=== PATIENT | male | born 1960 | race Caucasian/White ===

== ENCOUNTER 2020-06-20 18:45 | Inpatient (IN) | payer OTHER, SELFPAY ==
[2020-06-20] VITALS (12 sets, daily range): BP systolic 140–182; BP diastolic 68–84; PULSE 54–70; RESP 16–17; TEMP 36.3–36.5; O2SAT 93–97; BMI 30.3
--- NOTE | 2020-06-20 19:00 | ED.GENADULT ---
HPI - General Adult General Chief complaint: GI Bleed Stated complaint: states hemmoroid, on warfarin, wont stop bleed Time Seen by Provider: 06/20/20 19:00 History of Present Illness HPI narrative: 59-year-old gentleman with aortic heart replacement currently on Coumadin with high blood pressure presents with rectal bleeding. He has had 8 years of presumed hemorrhoidal rectal bleeding. Because of his heart issues 3 open-heart surgeries with valve replacements and Coumadin his physicians have always suggested that the inconvenience of minor rectal bleeding was not enough to consider a hemorrhoidectomy. He states that he bleeds regularly however over the last 24 hours it is significantly worse not stopping and is more painful. Related Data Home Medications Medication Instructions Recorded Confirmed carvedilol [Coreg] 12.5 mg PO BID #0 07/25/11 06/20/20 spironolactone 25 mg PO QDAY #0 07/25/11 06/20/20 atorvastatin 40 mg PO QPM 06/20/20 06/20/20 furosemide 40 mg PO QAM 06/20/20 06/20/20 lisinopril 2.5 mg PO QPM 06/20/20 06/20/20 sertraline 100 mg PO QPM 06/20/20 06/20/20 warfarin [Coumadin] 10 mg PO DAILY 06/20/20 06/20/20 Allergies Allergy/AdvReac Type Severity Reaction Status Date / Time vancomycin [VANCOMYCIN] Allergy Unknown Verified 06/20/20 18:58 Influenza Virus Vaccines Allergy Verified 06/20/20 18:58 Review of Systems Review of Systems Narrative: Pertinent positive and negative findings as per HPI Remainder of review of systems is otherwise unremarkable for Constitutional: Fevers, chills, weakness ENT: No sore throat, neck pain, ear pain CV: Chest pain, palpitations, dyspnea on exertion Respiratory: Cough, wheeze, dyspnea GI: Nausea, vomiting, diarrhea, change in bowel habits, black or bloody stools : Dysuria, hematuria, flank pain MS: Muscle weakness, numbness, joint swelling or warmth Skin: Rashes, nonhealing lesions Patient History Medical History Chronic anticoagulation (Acute) High cholesterol (Acute) Hypertension (Acute) Myocardial infarct, old (Acute) Surgical History Mechanical heart valve present (Acute) Social History Smoking Status: Unknown if ever smoked Exam Narrative Exam Narrative: General: Healthy appearing, in no acute distress. Able to give a complete and coherent history. Well-nourished well-developed HEENT: Moist mucous membranes, normal sclera with reactive pupils, Respiratory: Lungs are clear to auscultation, no wheezing no rales no rhonchi. Full and symmetrical air movement Cardiac: Regular rate and rhythm no murmurs no bruits Abdomen: Soft nontender good bowel tones, no flank pain Skin: Warm and dry, no rashes Neurologic: Grossly neurologically intact with no obvious asymmetries or abnormalities Psych: Cooperative, appropriate insight and affect Rectal: 2 moderate size have thrombosed hemorrhoids each approximately 0.5 x 2.5 cm. In attempting actual rectal exam I am able to get my finger in at approximately 6:00 however from the 12 o'clock position there raw and irritated area that is not flexible, oozing blood and I am concerned that is actually a rectal cancer. And has a more fungating and macerated type surface than the hemorrhoids or internal mucosal surfaces. Initial Vital Signs Initial Vital Signs: Vital Signs Temperature 97.7 F 06/20/20 18:51 Pulse Rate 64 06/20/20 18:51 Respiratory Rate 16 06/20/20 18:51 Blood Pressure 182/83 H 06/20/20 18:51 Pulse Oximetry 97 06/20/20 18:51 Course Orders Ordered: ED Orders 06/20/20 19:15 Complete Blood Count AUTO DIFF Stat Comprehensive Metabolic Panel Stat Partial Thromboplastin Time Stat Prothrombin Time INR Stat Type and Screen Stat Discontinued Medications Tranexamic Acid (Cyklokapron) 1,000 mg MM NOW ONE Stop: 06/20/20 20:15 Last Admin: 06/20/20 21:40 Dose: 1,000 mg Documented by: YOLY Vital Signs Vital signs: Vital Signs - 8 hr 06/20/20 18:51 06/20/20 19:31 06/20/20 20:01 Temperature 97.7 F Pulse Rate 64 61 67 Respiratory Rate 16 Blood Pressure 182/83 H 155/68 H 181/84 H Pulse Oximetry 97 93 94 06/20/20 20:30 06/20/20 20:31 06/20/20 21:00 Temperature Pulse Rate 62 63 70 Respiratory Rate Blood Pressure 152/70 H 172/77 H Pulse Oximetry 96 95 96 Medical Decision Making Medical Records Medical records reviewed: Yes I reviewed the patient's medical records. Lab Data Lab results reviewed: Yes I reviewed the patient's lab results. Result diagrams: 06/20/20 19:15 06/20/20 19:15 Labs: Lab Results 06/20/20 06/20/20 06/20/20 Range/Units 19:15 19:15 19:15 WBC 6.2 (4.5-11.0) X10^3/uL RBC 5.00 (4.5-5.9) X10^6/uL Hgb 14.8 (13.5-17.5) g/dL Hct 42.7 (41-53) % MCV 85.5 (80-100) fL MCH 29.6 (26-34) PG MCHC 34.7 (30-36) % RDW 13.6 (11.6-14.8) % Plt Count 155 (150-400) X10^3/uL Neut % (Auto) 68.2 (50-75) % Lymph % (Auto) 23.7 L (25-40) % [place] % (Auto) 6.7 (3-14) % Eos % (Auto) 1.0 L (2-4) % Baso % (Auto) 0.4 (0-2) % Neut # (Auto) 4200 (9016-3974) /uL Lymph # (Auto) 1500 (0450-2241) /uL [place] # (Auto) 400 (0-900) /uL Eos # (Auto) 100 (0-450) /uL Baso # (Auto) 0 (0-100) /uL PT 26.3 H (10.1-12.7) SECONDS INR 2.3 H (0.9-1.3) APTT 29 (26.4-36.2) SECONDS Sodium 137 (137-145) mmol/L Potassium 4.3 (3.4-5.1) mmol/L Chloride 103 (98-107) mmol/L Carbon Dioxide 28 (22-32) mmol/L BUN 20 (9-20) mg/dL Creatinine 1.12 (0.66-1.25) mg/dL Estimated GFR > 60.0 (>60) mL/min BUN/Creatinine Ratio 17.9 (6-22) Glucose 111 H (80-110) mg/dL Calcium 10.1 (8.4-10.2) mg/dL Total Bilirubin 1.2 (0.2-1.3) mg/dL AST 43 (17-59) IU/L ALT 37 (<50) IU/L Alkaline Phosphatase 98 (38-126) U/L Total Protein 8.6 H (6.3-8.2) g/dL Albumin 5.2 H (3.5-5.0) g/dL Globulin 3.4 (1.7-4.1) g/dL Albumin/Globulin Ratio 1.5 (1.0-2.8) Blood Type Antibody Screen 06/20/20 Range/Units 19:15 WBC (4.5-11.0) X10^3/uL RBC (4.5-5.9) X10^6/uL Hgb (13.5-17.5) g/dL Hct (41-53) % MCV (80-100) fL MCH (26-34) PG MCHC (30-36) % RDW (11.6-14.8) % Plt Count (150-400) X10^3/uL Neut % (Auto) (50-75) % Lymph % (Auto) (25-40) % [place] % (Auto) (3-14) % Eos % (Auto) (2-4) % Baso % (Auto) (0-2) % Neut # (Auto) (7740-9645) /uL Lymph # (Auto) (8972-2917) /uL [place] # (Auto) (0-900) /uL Eos # (Auto) (0-450) /uL Baso # (Auto) (0-100) /uL PT (10.1-12.7) SECONDS INR (0.9-1.3) APTT (26.4-36.2) SECONDS Sodium (137-145) mmol/L Potassium (3.4-5.1) mmol/L Chloride (98-107) mmol/L Carbon Dioxide (22-32) mmol/L BUN (9-20) mg/dL Creatinine (0.66-1.25) mg/dL Estimated GFR (>60) mL/min BUN/Creatinine Ratio (6-22) Glucose (80-110) mg/dL Calcium (8.4-10.2) mg/dL Total Bilirubin (0.2-1.3) mg/dL AST (17-59) IU/L ALT (<50) IU/L Alkaline Phosphatase (38-126) U/L Total Protein (6.3-8.2) g/dL Albumin (3.5-5.0) g/dL Globulin (1.7-4.1) g/dL Albumin/Globulin Ratio (1.0-2.8) Blood Type O Negative Antibody Screen Negative MDM Narrative Medical decision making narrative: 59-year-old man with rectal bleeding concern for rectal cancer with obvious thrombosed hemorrhoids externally as well. Bleeding was controlled with Surgicel and ice. Of topical TIA x-ray on cotton balls just inside the orifice help control the oozing even more effectively. Discussion with Dr. Galeana. She said that she had time to see him in her clinic on and would happily consult if there is reason to stand hospital. As the bleeding is oozing and he is hemodynamically stable with the very reassuring hematocrit and INR therapeutic at 2.3 I believe home discharge is safe. Shared with him my concerns that this could be a cancer and even if it isn't the procedure is minor enough that 8 years of rectal bleeding is long enough to at least meet with a surgeon and consider surgical treatment. His primary care physician is with [facility], Dr. Garcia His oil well services dispatcher is [facility] and telling him. He states his last echocardiogram was a number of years ago. Dr. Galeana has call to review. Bleeding is definitely slowing but not stopped. Given his cardiac issues an anticoagulation issues he may be better served with an inpatient stay, medical management regarding anticoagulantion, record review and Anesthesiology consult in anticipation of surgical procedure needed. She will come in to examine the patient see if surgery is necessary sooner rather than later. After examination and discussion, surgeon and patient have decided on hospital admission. He will go to the medicine service for management of his anticoagulation as well as the valvular issues and anesthesia consultation. As his INR is 2.3 currently and goal is 1.5 her lower will opt to not give him his Coumadin tonight not treat him with vitamin K recheck tomorrow. May benefit more from FFP tomorrow morning if needed rather than vitamin K to prolong his window of getting back to a therapeutic level of anticoagulation post procedures. Plan is to do an exam under anesthesia tomorrow and probably inpatient colon prep with colonoscopy the following day given the severity of the rectal bleeding in the concern for rectal malignancy. Case was reviewed with hospital nurse practitioner Darrick, who will be the admitting provider eleonora. Discharge Plan Departure Patient Disposition: Admitted As Inpatient Clinical Impression: Lower gastrointestinal hemorrhage Referrals: Sascha Garcia MD [Primary Care Provider] -
[2020-06-20 19:23] LABS: Add Manual Diff / Slide Review NO; Basophils Absolute Auto 0 /uL (0-100); Basophils Percent Auto 0.4 % (0-2); Eosinophils Absolute Auto 100 /uL (0-450); Hematocrit 42.7 % (41-53); Hemoglobin 14.8 g/dL (13.5-17.5); Lymphocytes Absolute Auto 1500 /uL (1100-4500); Lymphocytes Percent Auto 23.7 % (25-40); Mean Corpuscular HGB Conc 34.7 % (30-36); Mean Corpuscular Hemoglobin 29.6 PG (26-34); Mean Corpuscular Volume 85.5 fL (80-100); Monocytes Absolute Auto 400 /uL (0-900); Monocytes Percent Auto 6.7 % (3-14); Neutrophils Absolute Auto 4200 /uL (1500-7000); Neutrophils Percent Auto 68.2 % (50-75); Platelet Count 155 X10^3/uL (150-400); Red Cell Distribution Width 13.6 % (11.6-14.8); White Blood Cell Count 6.2 X10^3/uL (4.5-11.0)
[2020-06-20 19:29] LABS: INR 2.3 (0.9-1.3); Prothrombin Time 26.3 SECONDS (10.1-12.7)
[2020-06-20 19:32] LABS: PTT Partial Thromboplastin Tim 29 SECONDS (26.4-36.2)
[2020-06-20 19:34] LABS: Alanine Aminotransferase 37 IU/L (<50); Albumin 5.2 g/dL (3.5-5.0); Albumin Globulin Ratio 1.5 (1.0-2.8); Alkaline Phosphatase 98 U/L (38-126); Aspartate Aminotransferase 43 IU/L (17-59); BUN Creatinine Ratio 17.9 (6-22); Bilirubin Total 1.2 mg/dL (0.2-1.3); Blood Urea Nitrogen 20 mg/dL (9-20); Calcium 10.1 mg/dL (8.4-10.2); Carbon Dioxide 28 mmol/L (22-32); Chloride 103 mmol/L (98-107); Estimated Glomerular Filt Rate > 60.0 mL/min (>60); Globulin 3.4 g/dL (1.7-4.1); Glucose 111 mg/dL (80-110); HEMOLYSIS < 15 (0-50); Potassium 4.3 mmol/L (3.4-5.1); Sodium 137 mmol/L (137-145); Total Protein 8.6 g/dL (6.3-8.2)
[2020-06-20] MEDS: TRANEXAMIC ACID 1,000 MG VIAL 1000 MG MM (21:40)
--- NOTE | 2020-06-20 21:43 | P.CONS_ITS ---
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 He has been on coumadin for the past 8 years due to the metal valve. He has had rectal bleeding ever since starting coumadin. He had never had a colonoscopy due to the complicated cardiac situation. He has intermittent rectal bleeding. Whenever he eats something he shouldn't and gets constipation he gets rectal bleeding. He often has signif icant swelling which he has now. He deferred dealing with his rectal bleeding because of the coumadin and cardiac history. He came into the ER tonight because of copious uncontrolled bleeding and uncontrolled pain. Dr. Neal in the ER has used surgicel, an ice pack, and transexcemic acid to try and stop his bleeding. His daughter is supposed to get proposed to by her boyfriend on Friday and the patient was planning to fly to [place] for that on Friday. ROS: Thirteen system review is otherwise negative other than as mentioned below and in HPI. Constitutional: Denies fevers, chills, weakness ENT: Denies sore throat, neck pain, ear pain CV: Denies chest pain, palpitations, dyspnea on exertion Respiratory: Denies cough, wheeze, dyspnea GI: Denies nausea, vomiting, diarrhea; reports change in bowel habits, black or bloody stools : Denies dysuria, hematuria, flank pain MS: Denies muscle weakness, numbness, joint swelling or warmth Skin: Denies rashes, nonhealing lesions PE: GENERAL: Well groomed and cooperative. Appears stated age. Answers questions promptly and appropriately. Vital signs noted. HENT: Normocephalic, atraumatic. Hearing intact. EYES: Conjunctiva pink, sclera white, no periorbital swelling. CARDIOVASCULAR: Regular rate. No pedal edema. RESPIRATORY: Non-tachypneic, breathing comfortably on room air. GASTROINTESTINAL: Abdomen soft and non-distended perianal: blood present, large external hemorrhoid swellings, tender to palpation GALLITO: massively swollen internal and external hemorrhoids, with internal hemorrhoid prolapse, with dark strangulated appearing prolapsed rectal mucosa GENITALURINARY: No flank tenderness. MUSCULOSKELETAL: Equal tone and mass bilaterally. SKIN: Warm, dry, soft, appropriate color for ethnicity. No other lesions, rashes, or wounds. NEURO: Alert and Oriented X 3. No gross sensory deficits, or cognitive issues. PSYCH: Appropriate affect and mood. Meds Home Medications and Allergies Home Medications Medication Instructions Recorded Confirmed Type carvedilol [Coreg] 12.5 mg PO BID #0 07/25/11 06/20/20 History spironolactone 25 mg PO QDAY #0 07/25/11 06/20/20 History atorvastatin 40 mg PO QPM 06/20/20 06/20/20 History furosemide 40 mg PO QAM 06/20/20 06/20/20 History lisinopril 2.5 mg PO QPM 06/20/20 06/20/20 History sertraline 100 mg PO QPM 06/20/20 06/20/20 History warfarin [Coumadin] 10 mg PO DAILY 06/20/20 06/20/20 History Allergies Allergy/AdvReac Type Severity Reaction Status Date / Time vancomycin [VANCOMYCIN] Allergy Unknown Verified 06/20/20 18:58 Influenza Virus Vaccines Allergy Verified 06/20/20 18:58 Exam Vital Signs (past 8 hours): - 06/20/20 18:51 06/20/20 19:31 06/20/20 20:01 Temperature 97.7 F Pulse Rate 64 61 67 Respiratory Rate 16 Blood Pressure 182/83 H 155/68 H 181/84 H Pulse Oximetry 97 93 94 06/20/20 20:30 06/20/20 20:31 06/20/20 21:00 Temperature Pulse Rate 62 63 70 Respiratory Rate Blood Pressure 152/70 H 172/77 H Pulse Oximetry 96 95 96 Oxygen Delivery Method Room Air Objective Labs Result Diagrams: 06/20/20 19:15 06/20/20 19:15 Labs: Laboratory Results - last 24 hr 06/20/20 06/20/20 06/20/20 19:15 19:15 19:15 WBC 6.2 RBC 5.00 Hgb 14.8 Hct 42.7 MCV 85.5 MCH 29.6 MCHC 34.7 RDW 13.6 Plt Count 155 Neut % (Auto) 68.2 Lymph % (Auto) 23.7 L [place] % (Auto) 6.7 Eos % (Auto) 1.0 L Baso % (Auto) 0.4 Neut # (Auto) 4200 Lymph # (Auto) 1500 [place] # (Auto) 400 Eos # (Auto) 100 Baso # (Auto) 0 PT 26.3 H INR 2.3 H APTT 29 Sodium 137 Potassium 4.3 Chloride 103 Carbon Dioxide 28 BUN 20 Creatinine 1.12 Estimated GFR > 60.0 BUN/Creatinine Ratio 17.9 Glucose 111 H Calcium 10.1 Total Bilirubin 1.2 AST 43 ALT 37 Alkaline Phosphatase 98 Total Protein 8.6 H Albumin 5.2 H Globulin 3.4 Albumin/Globulin Ratio 1.5 Blood Type Antibody Screen 06/20/20 19:15 WBC RBC Hgb Hct MCV MCH MCHC RDW Plt Count Neut % (Auto) Lymph % (Auto) [place] % (Auto) Eos % (Auto) Baso % (Auto) Neut # (Auto) Lymph # (Auto) [place] # (Auto) Eos # (Auto) Baso # (Auto) PT INR APTT Sodium Potassium Chloride Carbon Dioxide BUN Creatinine Estimated GFR BUN/Creatinine Ratio Glucose Calcium Total Bilirubin AST ALT Alkaline Phosphatase Total Protein Albumin Globulin Albumin/Globulin Ratio Blood Type O Negative Antibody Screen Negative Assessment & Plan Assessment and plan (1) Lower gastrointestinal hemorrhage: Status: Acute (2) Internal hemorrhoids with complication: Status: Acute (3) External hemorrhoids with complication: Status: Acute (4) Chronic constipation: Status: Acute (5) Anticoagulated on Coumadin: Status: Acute (6) S/P aortic valve replacement with metallic valve: Status: Acute Assessment & Plan narrative: This is a 59 yo man who has copious rectal bleeding and pain, on coumadin, with a complicated cardiac history. My concern is that he will continue to bleed without control, he may have an undiagnosed malignancy, and he has not been able to address this as an outpatient. I have recommended that he be admitted to the hospitalist, risk stratified for surgery, and have his anticoagulation reversed, with plans for anorectal exam under anesthesia tomorrow, and possible colonoscopy the following day. Plan: Admit to hospitalist, risk stratify for anorectal exam under anesthesia, hemorrhoidectomy, and possible colonoscopy procedure Please get primary care and executive chef notes for medical history and risk assessment Clear liquids until midnight NPO after midnight Hold anticoagulation Ice pack to rectum Preparation H external cream to anoderm and Preparation H suppositories Q 6 hours Recheck INR in AM, will consider FFP for procedure if INR is >2 Would avoid vitamin K as it will be tough to get his INR back up Will plan on Anorectal exam under anesthesia tomorrow, likely in the afternoon. Depending on the outcome, we may attempt bowel prep after the exam, and colonoscopy or Friday
[2020-06-20 22:45] LABS: COVID19 -Nasal RAPID Negative (Negative)
[2020-06-20] MEDS: carvediloL 12.5 MG TABLET PO (22:45)
[2020-06-20] MEDS: SERTRALINE 50 MG TABLET 100 MG PO (22:45)
[2020-06-20] MEDS: ATORVASTATIN 20 MG TABLET 40 MG PO (22:45)
[2020-06-20] MEDS: LACTATED RINGERS 1,000 ML 75 ML IV (22:46)
--- NOTE | 2020-06-20 22:54 | PC.ADMIT ---
[email or web address] Chaya Pierre Admission Note: The patient,Miky Segundo,59 y/o, was given written information regarding hospital policies, unit procedures and contact persons. Patient's smoking status: Unknown if ever smoked. Vital Signs - 8 hr 06/20/20 18:51 06/20/20 19:31 06/20/20 20:01 Temperature 97.7 F Pulse Rate 64 61 67 Respiratory Rate 16 Blood Pressure 182/83 H 155/68 H 181/84 H Pulse Oximetry 97 93 94 06/20/20 20:30 06/20/20 20:31 06/20/20 21:00 Temperature Pulse Rate 62 63 70 Respiratory Rate Blood Pressure 152/70 H 172/77 H Pulse Oximetry 96 95 96 06/20/20 21:30 06/20/20 21:31 06/20/20 21:38 Temperature Pulse Rate 56 L 57 L Respiratory Rate Blood Pressure 172/81 H Pulse Oximetry 95 93 94 06/20/20 22:01 06/20/20 22:45 Temperature Pulse Rate 54 L Respiratory Rate Blood Pressure 173/84 H 140/78 Pulse Oximetry Patient up from ED via stretcher. Patient was able to move self over to ac bed on own. Patient did have some bloody drainage on ED chucks pad. Patient denies any feelings of dizziness or feeling lightheaded. Patient A&O, calm and cooperative. Call light in reach. Patient aware of NPO status at midnight.
[2020-06-21] VITALS (23 sets, daily range): BP systolic 104–158; BP diastolic 58–80; PULSE 47–72; RESP 15–18; TEMP 36.1–37.5; O2SAT 93–99; BMI 28.6
--- NOTE | 2020-06-21 | PATH_ITS ---
[facility] Accession Number: [id number] . 01 Material submitted: . anus - ANAL BIOPSY . 01 Clinical history: . STATES HEMORRHOID, ON WARFARIN, WONT STOP BLEED . 02 Diagnosis: Anal, Biopsy: Ulcerated anorectal tissue with and prominent mucosal vessels, consistent with hemorrhoidal tissue. Negative for dysplasia and malignancy. MRV 06/23/2020 1337 Local . 02 Electronically signed: . Yuki Moy MD, Pathologist NPI- [id number] . 01 Gross description: . Received in formalin and labeled with anal biopsy, are two pieces of delgado soft tissue, possibly skin, measuring 0.6 x 0.4 x 0.3 to 0.6 x 0.5 x 0.2 cm. The first piece is inked, bisected, and entirely submitted in cassette A1. The second piece is inked, bisected, and entirely submitted in cassette A2. The tissue may further fragment during processing. ([id number]) /MRV 06/22/2020 0951 Local . 02 Pathologist provided ICD-10: K64.9 . 02 CPT . 300168 Performed at: 01 [facility] [address], [place], [place] [id number] MD Renan Yu MD Phone: [phone] Performed at: 02 [facility] [address] [place], [place] [id number] MD Yuki Moy MD Phone: [phone]
--- NOTE | 2020-06-21 00:22 | PM.HP.1 ---
History of Present Illness History of Present Illness Date Patient Seen: 06/20/20 Time Patient Seen: 23:00 Chief complaint: states hemmoroid, on warfarin, wont stop bleed Narrative: Miky Segundo is a pleasant 59-year-old male on warfarin anticoagulation for a mechanical valve presents with persistent hemorrhoidal bleeding that he attributes to his warfarin. The patient was evaluated in the ED by general surgery and they would like to admit the patient for further workup of the rectal bleeding as a believe he may have a rectal mass. They have requested admission so that the patient can undergo further exploration under general anesthesia tomorrow with a possible lower GI scope on or Friday of this week. The patient has a 10 year history of a repair of what was a bicuspid valve initially replaced with a porcine valve. He then underwent a dental procedure and developed an endocarditis that progressed to the point were he underwent 6 weeks of IV and intracardiac antibiotic therapy and at that time was placed on the heart transplant list at [facility] in [place]. The antibiotic therapy was successful and he underwent placement of a mechanical valve approximately 8 years ago and has been on warfarin anticoagulation since. He states that his INR does very quite a bit with his diet. He does have chronic constipation. He denies fevers sweats or chills though was quite diaphoretic while undergoing his workup in the ED, denies shortness of breath, chest pain, nausea vomiting, abdominal cramping, or diarrhea. Patient has a history of a 7 level cervical neck fusion and has chronic tingling of his right arm and 1st 3 fingers and thumb. In the emergency department he was evaluated by Dr. Galeana who would like the patient risk stratified and prepared for surgery in the morning. She recommended NPO after midnight and plans to take him in to the OR for rectal manipulation under general anesthesia sometime tomorrow afternoon. Patient's temperature was 97.4?, blood pressure 140/78, heart rate 54, respiratory rate of 17, oxygen saturation of 95% on room air, he weighs 98.5 kg and has a BMI of 30.3. WBC is 6.2, RBC 5.0, hemoglobin 14.8, hematocrit 42.7, platelet count 155, his INR is 2.3, sodium 137, potassium 4.3, chloride 103, CO2 28, creatinine 1.12, BUN 20, GFR greater than 60, glucose was 111, calcium 10.1, total bilirubin 1.2, liver enzymes are normal, COVID-19 negative. Patient History Medical History Chronic anticoagulation (Acute) High cholesterol (Acute) Hypertension (Acute) Myocardial infarct, old (Acute) Surgical History Mechanical heart valve present (Acute) Family & Social History Social History: household members significant other Prior Living Arrangements House Safety & Behavioral: Feels Safe in Current Yes Environment Been Physically Hurt or No Threatened By a Person Suicidal Ideation Description None Suicide Plan Description No Plan Tobacco & Substance use: Smoking Status Unknown if ever smoked alcohol intake former alcohol intake frequency holiday/special occasion Substance Use Type does not use Meds Home Medications and Allergies Home Medications Medication Instructions Recorded Confirmed Type carvedilol [Coreg] 12.5 mg PO BID #0 07/25/11 06/20/20 History spironolactone 25 mg PO QDAY #0 07/25/11 06/20/20 History atorvastatin 40 mg PO QPM 06/20/20 06/20/20 History furosemide 40 mg PO QAM 06/20/20 06/20/20 History lisinopril 2.5 mg PO QPM 06/20/20 06/20/20 History sertraline 100 mg PO QPM 06/20/20 06/20/20 History warfarin [Coumadin] 10 mg PO DAILY 06/20/20 06/20/20 History Allergies Allergy/AdvReac Type Severity Reaction Status Date / Time vancomycin [VANCOMYCIN] Allergy Unknown Verified 06/20/20 18:58 Influenza Virus Vaccines Allergy Verified 06/20/20 18:58 Review of Systems Review of Systems ROS: Yes All systems reviewed with the patient and are negative except as otherwise documented Exam Vital Signs (past 8 hours): - 06/20/20 18:51 06/20/20 19:31 06/20/20 20:01 Temperature 97.7 F Pulse Rate 64 61 67 Respiratory Rate 16 Blood Pressure 182/83 H 155/68 H 181/84 H Pulse Oximetry 97 93 94 06/20/20 20:30 06/20/20 20:31 06/20/20 21:00 Temperature Pulse Rate 62 63 70 Respiratory Rate Blood Pressure 152/70 H 172/77 H Pulse Oximetry 96 95 96 06/20/20 21:30 06/20/20 21:31 06/20/20 21:38 Temperature Pulse Rate 56 L 57 L Respiratory Rate Blood Pressure 172/81 H Pulse Oximetry 95 93 94 06/20/20 22:01 06/20/20 22:42 06/20/20 22:45 Temperature 97.4 F L Pulse Rate 54 L 54 L Respiratory Rate 17 Blood Pressure 173/84 H 140/78 140/78 Pulse Oximetry 95 Oxygen Delivery Method Room Air Narrative Exam Narrative: Gen: Alert, oriented, well-developed 73 y.o. male, appears comfortable HEENT: normocephalic, atraumatic, conjunctiva clear, sclera non-icteric, oral mucosa pink and moist Neck: supple, full ROM, no JVD, trachea is midline Resp: Lungs CTA, non-labored breathing CV: Slightly bradycardic, no murmur or rubs Abd: soft, non-tender, normoactive BTs Skin: no lesions or rashes, dry and intact Neuro: Alert and oriented X 4 w/no focal deficits. Speech clear and coherent. Extremities: moves all 4 extremities, is ambulatory, negative Enoc?s sign Psyche: normal mood and affect. Objective Labs Result Diagrams: 06/20/20 19:15 06/20/20 19:15 Labs: Laboratory Results - last 24 hr 06/20/20 06/20/20 06/20/20 19:15 19:15 19:15 WBC 6.2 RBC 5.00 Hgb 14.8 Hct 42.7 MCV 85.5 MCH 29.6 MCHC 34.7 RDW 13.6 Plt Count 155 Neut % (Auto) 68.2 Lymph % (Auto) 23.7 L [place] % (Auto) 6.7 Eos % (Auto) 1.0 L Baso % (Auto) 0.4 Neut # (Auto) 4200 Lymph # (Auto) 1500 [place] # (Auto) 400 Eos # (Auto) 100 Baso # (Auto) 0 PT 26.3 H INR 2.3 H APTT 29 Sodium 137 Potassium 4.3 Chloride 103 Carbon Dioxide 28 BUN 20 Creatinine 1.12 Estimated GFR > 60.0 BUN/Creatinine Ratio 17.9 Glucose 111 H Calcium 10.1 Total Bilirubin 1.2 AST 43 ALT 37 Alkaline Phosphatase 98 Total Protein 8.6 H Albumin 5.2 H Globulin 3.4 Albumin/Globulin Ratio 1.5 COVID-19 PCR Blood Type Antibody Screen 06/20/20 06/20/20 19:15 21:36 WBC RBC Hgb Hct MCV MCH MCHC RDW Plt Count Neut % (Auto) Lymph % (Auto) [place] % (Auto) Eos % (Auto) Baso % (Auto) Neut # (Auto) Lymph # (Auto) [place] # (Auto) Eos # (Auto) Baso # (Auto) PT INR APTT Sodium Potassium Chloride Carbon Dioxide BUN Creatinine Estimated GFR BUN/Creatinine Ratio Glucose Calcium Total Bilirubin AST ALT Alkaline Phosphatase Total Protein Albumin Globulin Albumin/Globulin Ratio COVID-19 PCR Negative Blood Type O Negative Antibody Screen Negative Assessment & Plan Assessment & Plan narrative: Miky Segundo will be admitted as an inpatient for further evaluation of severe rectal bleeding associated with hemorrhoids and a possible rectal mass. Rectal bleeding, acute, present on admission -patient will be NPO after midnight -Dr. Galeana general surgery consulting -warfarin will be held with a goal INR of 1.5 -if INR isn't low enough consider FFP Mechanical valve, chronic -Continue diuretics of furosemide 40 mg p.o. and spirolactone 25 mg p.o. in the morning -patient's INR today was 2.3 Essential hypertension, chronic and controlled -Continue home dose of carvedilol 12.5 mg p.o. b.i.d. -Continue home dose of lisinopril 12.5 mg p.o. in the evening Hyperlipidemia, chronic -continue home dose of atorvastatin 40 mg p.o. in the evening COVID-19 COVID-19 status: Negative Result date/Date tested (Pos, Neg/Pending): 06/20/20 Scores CHADS-VASc Congestive heart failure: yes Hypertension: yes Age 75 years or older: no Diabetes mellitus: no Stroke, TIA, or TE: no Vascular disease: yes Age 65 to 74 years: yes Sex category (female): Male CHADS-VASc Score: 4 Quality VTE Deep Vein Thrombosis/Pulmonary Embolism Present on Admission: No
[2020-06-21 05:22] LABS: Add Manual Diff / Slide Review NO; Basophils Absolute Auto 0 /uL (0-100); Basophils Percent Auto 0.4 % (0-2); Eosinophils Absolute Auto 100 /uL (0-450); Eosinophils Percent Auto 1.8 % (2-4); Hematocrit 38.5 % (41-53); Hemoglobin 13.2 g/dL (13.5-17.5); Lymphocytes Absolute Auto 1400 /uL (1100-4500); Lymphocytes Percent Auto 33.9 % (25-40); Mean Corpuscular HGB Conc 34.1 % (30-36); Mean Corpuscular Hemoglobin 29.5 PG (26-34); Mean Corpuscular Volume 86.4 fL (80-100); Monocytes Absolute Auto 400 /uL (0-900); Monocytes Percent Auto 9.3 % (3-14); Neutrophils Absolute Auto 2200 /uL (1500-7000); Neutrophils Percent Auto 54.6 % (50-75); Platelet Count 106 X10^3/uL (150-400); Red Blood Cell Count 4.46 X10^6/uL (4.5-5.9); Red Cell Distribution Width 13.5 % (11.6-14.8); White Blood Cell Count 4.1 X10^3/uL (4.5-11.0)
[2020-06-21 05:30] LABS: INR 2.3 (0.9-1.3); Prothrombin Time 26.5 SECONDS (10.1-12.7)
[2020-06-21 05:42] LABS: Alanine Aminotransferase 36 IU/L (<50); Albumin 4.4 g/dL (3.5-5.0); Albumin Globulin Ratio 1.5 (1.0-2.8); Alkaline Phosphatase 74 U/L (38-126); Aspartate Aminotransferase 42 IU/L (17-59); BUN Creatinine Ratio 14.2 (6-22); Bilirubin Total 1.1 mg/dL (0.2-1.3); Blood Urea Nitrogen 17 mg/dL (9-20); Calcium 9.2 mg/dL (8.4-10.2); Carbon Dioxide 30 mmol/L (22-32); Chloride 102 mmol/L (98-107); Estimated Glomerular Filt Rate > 60.0 mL/min (>60); Globulin 2.9 g/dL (1.7-4.1); Glucose 108 mg/dL (80-110); HEMOLYSIS < 15 (0-50); Magnesium 2.1 mg/dL (1.6-2.3); Potassium 3.8 mmol/L (3.4-5.1); Sodium 136 mmol/L (137-145); Total Protein 7.3 g/dL (6.3-8.2)
[2020-06-21] MEDS: SPIRONOLACTONE 25 MG TABLET PO (07:57)
[2020-06-21] MEDS: FUROSEMIDE 40 MG TABLET PO (07:58)
[2020-06-21] MEDS: carvediloL 12.5 MG TABLET PO ×2 (07:58→20:39)
[2020-06-21] MEDS: HYDROCORTISONE 25 MG SUPP PR (08:18)
[2020-06-21] MEDS: PHENYLEPH/MINERAL OIL/PETROLAT 57 GM OINT 1 APPLIC PR ×2 (08:18→20:40)
--- NOTE | 2020-06-21 09:52 | PC.NURSE ---
Nursing FFP started @ 947.
--- NOTE | 2020-06-21 10:23 | PC.NURSE ---
Dr. Berkowitz in this am to do rounds. She wanted us to put a rectal suppository in his rectum if possible, area swollen with protruding hemorrhoids that are red and purple in color. He is also having some bleeding with bright red blood. He did have a small bowel movement with bright red blood in stool. This RN was unable to suppository up patients rectum and could not find his opening. Prep H cream applied to bottom and he has an ice pack placed to his bottom. His first unit of FFP infusing and he will have one more unit to be hung, So that his INR will come down from 2.3. Patient will be going down for his anal exam around 1200 and his is in the room now. He is napping. Voiding per urinal.
[2020-06-21] MEDS: LORazepam 2 MG/ML INJ 0.5 MG IV (11:05)
--- NOTE | 2020-06-21 12:14 | CM.DANOTE ---
DCP Assessment: EMR reviewed: Patient is 59 yr old male who was admitted for Rectal bleeding an possible rectal mass. Patients PCP is Dr Garcia. CM/Rn met with patient and patients at the bedside. Patient was feeling anxious and started crying during visit. Patient asked CM/RN if he had cancer. CM/RN stated that his Dx is unknown at this point and that is why Dr. Berkowitz will be doing an anal exam and possibly a colonoscopy depending on findings during anal exam. Patient stated he is very worried and started crying again. Cm/RN let patients nurse know about patients anxiety and she will contact provider to see if patient can have something for anxiety prior to his procedure. Patient is Independent at baseline with all ADLs and driving. I: [employer] and select Plan: D/C home with family when medically stable. No identified D/C planning needs at this time. Diana Bourgeois RN Discharge Planning/Care Management CM Discharge Assessment Start: 06/21/20 12:13 Freq: Status: Active Protocol: Document 06/21/20 12:13 HS (Rec: 06/21/20 12:14 [id number]) Discharge Planning Assessment Assigned Bonding Agent Diana Bourgeois RN DPOA/Assigned Designee Name Nelsy Cee () Contact Information [phone] Advance Directives? No History Provided By Patient,Significant Other, Medical Record Has Patient been admitted in last 30 No days? Prior Living Arrangements House Household Members significant other Type of transporation used prior to Drives own vehicle admit Independent with ADL's Yes Is patient alert and oriented? Yes Caregiver for Another No Discharge Plan Home Referrals Initiated None needed Whiteboard Updated in Patient Room with Yes name and ext. # of Bonding Agent Review Status In Process Next Review Type Continued Stay Review
--- NOTE | 2020-06-21 13:00 | SUR.HOLD ---
1257 Dr. Berkowitz informed of INR 1.7 post transfusion
[2020-06-21] MEDS: LACTATED RINGERS 1,000 ML 42 ML IV (13:02)
--- NOTE | 2020-06-21 13:06 | PM.PREOP ---
Pre-operative Note COVID-19 COVID-19 status: Negative Result date/Date tested (Pos, Neg/Pending): 06/20/20 Interval Note History & Physical reviewed/Exam performed by Physician: Yes Changes to H&P: Yes H&P completed within 30 days and has changed as indicated here:: INR now 1.7 after FFP
[2020-06-21] MEDS: PIPERACILLIN-TAZO 3.375 GM/50 ML FROZ.PIGGY IV ×2 (14:00→20:39)
--- NOTE | 2020-06-21 14:18 | SUR.OPER ---
Prone on padded OR bed, head in foam head support, gel chest rolls, gel pad under knees, pillow under lower legs, toes free of pressure, arms secured on padded arm boards at <90 degrees abduction. Safety belt at thigh.
[2020-06-21] MEDS: BUPIVACAINE 0.25% W/ EPI 30 ML VIAL INJ (14:23)
[2020-06-21] MEDS: BUPIVACAINE LIPOSOME 266 MG/20 ML VIAL INJ (14:23)
--- NOTE | 2020-06-21 14:28 | SUR.OPER ---
5 hemorrhoid bads placed
[2020-06-21] MEDS: DIBUCAINE 1% OINT 28 GM 1 APPLIC TOP (14:31)
--- NOTE | 2020-06-21 14:45 | PC.NURSE ---
second unit of FFP infused at 1200 before going down for his procedure. Tolerated both units well.
--- NOTE | 2020-06-21 14:46 | PM.OP.1 ---
Operative Date/Time/Diagnoses Date of procedure: 06/21/20 Time of procedure: 14:47 Pre-op diagnosis: bleeding hemorrhoids, possible rectal mass Post-op diagnosis: same Procedure & Clinicians Procedure: Anorectal exam under anesthesia, biopsy of rectal mass, banding of internal hemorrhoids Same procedure as scheduled: Yes Indications: This is a 59 yo man on coumadin who came into the ER with copious rectal bleeding that was uncontrolled at home. He was suspected of having a rectal mass protruding through the anal opening, but was not able to tolerate full exam awake. He was admitted for reversal of his INR, and exam under anesthesia. The goal of this procedure was to biopsy the area of concern for malignancy and to establish hemostasis. Surgeon: Mónica Berkowitz Click Yes if Unassisted: Yes Anesthesia Type: General Operative Notes Findings: Excoriated, prolapsed, strangulated grade 4 internal hemorrhoids with active bleeding. Moderate external hemorrhoids without thrombosis. Specimen(s): other (biopsy of rectal tissue) Estimated Blood Loss (mL): 5 Blood products transfused: none Procedure in detail: The patient was brought into the OR. Sequential compression devices were placed on both legs and turned on. Appropriate perioperative antibiotics were given. General anesthesia was induced and the patient was intubated. He was turned prone onto the OR table. All bony prominences were padded. The buttocks were taped apart. The perianal area was prepped and draped in sterile fashion. Surgical timeout was conducted. 0.25% Marcaine with epi was used to perform a four quadrant anal block. Moderate external hemorrhoids were seen on external exam. Dark mucosa was seen protruding from the anal canal. After digital dilation of the anal canal, circumferential enlarged internal hemorrrhoids were seen. At the right posterior and left lateral positions, active bleeding was seen coming excoriated chronically strangulated hemorrohoidal swellings. At the right posterior position, there was a chronically thickened and hypercellular appearing area of mucosa which was biopsied. The biopsy was sent to pathology. The right side internal hemorrhoid was grasped proximal to the dentate line and two bands were placed on the base of the hemorrhoid with a hemorrhoidal cyanide pot tender. The left hemorrhoid column was then grasped and three bands were placed at the base of the hemorrhoid. Good hemostasis was achieved. The remaining Bupivicaine was injected circumferentially for a total of 60mL. 20mL of Exparel was injected in small aliquots circumferentially. A large Gelfoam was then coated and rolled with Bupivicaine and placed in the anal canal. A thick layer of Bupivicaine was used to coat the anoderm. A stack of 4x4 gauze was then used to cover the anal opening and secured in place with medipore tape. The patient was transferred onto her hospital bed into supine position. She was then awakened from anesthesia and extubated. Needle, sponge, and instrument counts were correct x 2. The patient was transferred to the PACU in stable condition. Complications: none Post-operative Condition: stable Disposition: PACU
--- NOTE | 2020-06-21 15:42 | SUR.PHASEI ---
Report to rafi Johnson. Pt transferred back to room in stable condition and pain at 4 completely tolerable. Drinking juice without problems and pt content and in good spirits.
--- NOTE | 2020-06-21 16:28 | P.PN_ITS ---
Subjective Subjective Date Patient Seen: 06/21/20 Time Patient Seen: 16:29 Interval history: Miky Segundo is a pleasant 59-year-old male on warfarin anticoagulation for a mechanical valve presents with persistent hemorrhoidal bleeding. He underwent an exam under anesthesia today with banding of multiple hemorrhoids with general surgery. They asked that his Coumadin be held for at least 2 weeks. I discussed this with the patient and his who was at [facility]. The patient was still slightly confused after his procedure. Did discuss briefly percentages regarding stroke risk with mechanical valve with with the family at bedside, however the patient was not cognitively with the enough to make this decision. They also talked about possibly discussing stopping Coumadin with his bridge manager Dr. Rodriguez at [facility]. Exam Vital Signs (past 8 hours): - 06/21/20 09:42 06/21/20 09:50 06/21/20 10:03 Temperature 96.9 F L 97.2 F L Pulse Rate 72 56 L Respiratory Rate 18 Blood Pressure 123/64 125/63 Pulse Oximetry 06/21/20 10:40 06/21/20 10:56 06/21/20 12:00 Temperature 97.4 F L 97.4 F L 98.2 F Pulse Rate 56 L 56 L 50 L Respiratory Rate 18 18 16 Blood Pressure 158/75 H 158/74 H 136/72 Pulse Oximetry 97 06/21/20 12:39 06/21/20 14:43 06/21/20 14:48 Temperature 99.5 F 97.8 F Pulse Rate 54 L 69 57 L Respiratory Rate 16 15 Blood Pressure 129/69 120/66 104/59 L Pulse Oximetry 96 93 98 06/21/20 14:53 06/21/20 14:59 06/21/20 15:15 Temperature 97.4 F L Pulse Rate 60 60 53 L Respiratory Rate 15 16 15 Blood Pressure 115/59 L 121/58 L 130/80 Pulse Oximetry 98 99 97 06/21/20 15:30 06/21/20 15:50 06/21/20 16:20 Temperature 97.7 F 98.0 F Pulse Rate 51 L 53 L 50 L Respiratory Rate 16 18 16 Blood Pressure 137/62 148/74 H 127/64 Pulse Oximetry 97 94 Oxygen Delivery Method Room Air Oxygen Flow Rate 0 Narrative Exam Narrative: Gen: Alert, oriented, well-developed 73 y.o. male, appears comfortable HEENT: normocephalic, atraumatic, conjunctiva clear, sclera non-icteric, oral mucosa pink and moist Neck: supple, full ROM, no JVD, trachea is midline Resp: Lungs CTA, non-labored breathing CV: Slightly bradycardic, no murmur or rubs Abd: soft, non-tender, normoactive BTs Skin: no lesions or rashes, dry and intact Neuro: Alert and oriented X 4 w/no focal deficits. Speech clear and coherent. Extremities: moves all 4 extremities, is ambulatory, negative Enoc?s sign Psyche: normal mood and affect. Objective Labs Result Diagrams: 06/21/20 05:07 06/21/20 05:07 Labs: Laboratory Results - last 24 hr 06/20/20 06/20/20 06/20/20 19:15 19:15 19:15 WBC 6.2 RBC 5.00 Hgb 14.8 Hct 42.7 MCV 85.5 MCH 29.6 MCHC 34.7 RDW 13.6 Plt Count 155 Neut % (Auto) 68.2 Lymph % (Auto) 23.7 L [place] % (Auto) 6.7 Eos % (Auto) 1.0 L Baso % (Auto) 0.4 Neut # (Auto) 4200 Lymph # (Auto) 1500 [place] # (Auto) 400 Eos # (Auto) 100 Baso # (Auto) 0 PT 26.3 H INR 2.3 H APTT 29 Sodium 137 Potassium 4.3 Chloride 103 Carbon Dioxide 28 BUN 20 Creatinine 1.12 Estimated GFR > 60.0 BUN/Creatinine Ratio 17.9 Glucose 111 H Calcium 10.1 Magnesium Total Bilirubin 1.2 AST 43 ALT 37 Alkaline Phosphatase 98 Total Protein 8.6 H Albumin 5.2 H Globulin 3.4 Albumin/Globulin Ratio 1.5 COVID-19 PCR Blood Type Antibody Screen 06/20/20 06/20/20 06/21/20 19:15 21:36 05:07 WBC 4.1 L RBC 4.46 L Hgb 13.2 L Hct 38.5 L MCV 86.4 MCH 29.5 MCHC 34.1 RDW 13.5 Plt Count 106 L Neut % (Auto) 54.6 Lymph % (Auto) 33.9 [place] % (Auto) 9.3 Eos % (Auto) 1.8 L Baso % (Auto) 0.4 Neut # (Auto) 2200 Lymph # (Auto) 1400 [place] # (Auto) 400 Eos # (Auto) 100 Baso # (Auto) 0 PT INR APTT Sodium Potassium Chloride Carbon Dioxide BUN Creatinine Estimated GFR BUN/Creatinine Ratio Glucose Calcium Magnesium Total Bilirubin AST ALT Alkaline Phosphatase Total Protein Albumin Globulin Albumin/Globulin Ratio COVID-19 PCR Negative Blood Type O Negative Antibody Screen Negative 06/21/20 06/21/20 06/21/20 05:07 05:07 08:10 WBC RBC Hgb Hct MCV MCH MCHC RDW Plt Count Neut % (Auto) Lymph % (Auto) [place] % (Auto) Eos % (Auto) Baso % (Auto) Neut # (Auto) Lymph # (Auto) [place] # (Auto) Eos # (Auto) Baso # (Auto) PT 26.5 H INR 2.3 H APTT Sodium 136 L Potassium 3.8 Chloride 102 Carbon Dioxide 30 BUN 17 Creatinine 1.20 Estimated GFR > 60.0 BUN/Creatinine Ratio 14.2 Glucose 108 Calcium 9.2 Magnesium 2.1 Total Bilirubin 1.1 AST 42 ALT 36 Alkaline Phosphatase 74 Total Protein 7.3 Albumin 4.4 Globulin 2.9 Albumin/Globulin Ratio 1.5 COVID-19 PCR Blood Type O Negative Antibody Screen Assessment & Plan Assessment & Plan narrative: Miky Segundo will be admitted as an inpatient for further evaluation of severe rectal bleeding associated with hemorrhoids and a possible rectal mass. 1. Rectal bleeding, acute, present on admission -Dr. Berkowitz today perform an exam under anesthesia and banded multiple hemorrhoids. She also performed rectal biopsies. If patient does not experience rebleeding she would ideally like to hold Coumadin for few weeks. Will need further discussion possibly with his outpatient bridge manager regarding risk benefit analysis. -warfarin will continue to be held pending for now in the case possible rebleeding. Patient was given 2 packs of FFP this morning. Will continue to monitor INR. 2. History of Mechanical aortic valve, chronic -patient had a bioprosthetic aortic valve implanted in 2006 due to a bicuspid aortic valve with valvular insufficiency. 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 According to cardiology notes he is been stable since that time, with mild reduced LV function at 45% and he has been without symptoms. -Continue diuretics of furosemide 40 mg p.o. and spirolactone 25 mg p.o. in the morning -patient's INR today was 2.3, given 2 packs of FFP prior to exam under anesthesia. 3. Essential hypertension, chronic and controlled -Continue home dose of carvedilol 12.5 mg p.o. b.i.d. -Continue home dose of lisinopril 2.5 mg p.o. in the evening 4. Chronic heart failure with reduced ejection fraction -as noted above previous ejection fraction has been stable since 2010 with an ejection fraction of 45%. He has been asymptomatic. 5. Hyperlipidemia, chronic -continue home dose of atorvastatin 40 mg p.o. in the evening Code: Full, surrogate decision maker is the patient's spouse DVT: On hold given active rectal bleeding, patient is usually on Coumadin and management of this is discussed above Dispo: Anticipate possible discharge tomorrow should the patient not experience any rebleeding after exam under anesthesia today per surgery recommendations. Quality VTE Deep Vein Thrombosis/Pulmonary Embolism Present on Admission: No
[2020-06-21] MEDS: LACTATED RINGERS 1,000 ML 75 ML IV (17:08)
--- NOTE | 2020-06-21 17:31 | PC.NURSE ---
Addendum entered by Elizabeth Zaidi R.N. 06/21/20 23:35: Dr Berkowitz in room to see patient, 4x4 drsg removed, she then administered Prep H inside of rectum, as well as to the outside. Two large hemorrhoids observed to right side of rectum. 4x4 drsg reapplied with paper tape. She ordered for nursing to apply Prep H inside & outside of rectum/anus as long as nurse felt comfortable doing so, because of banded hemorrhoids she stressed to be gentle with applicator tip. She asked to case picker Prep H suppositories which will be easier to use at home, stating these are not currently available inhouse from pharmacy. She gave teaching to patient & his regarding the need to not strain with BM's, to not use toilet paper when wiping but to use abdulkadir-wipes or sit in tub. She stated importance of avoiding anything to dislodge the bands from hemorrhoids. Stated that some scant spotty bleeding is to be expected, but if patient starts having bleeding over night for nurse to call physician immediately. She told the patient that if he experiences madhuri bleeding after discharge that he should go to the ER. Dr Berkowitz explained the importance of routine psyllium fiber to patient & his . Psyllium fiber given x 2 mixed in cranberry juice. Pt continues to deny any pain to his buttocks or groin. Complains of sore throat, denies need for pain medication at this time. Tolerating regular diet. He is much more alert & oriented and not grawgy as he was immediately post-op. Using call button appropriately. Instructed to call nurse if he needs OOB. Original Note: Post-op notes: Miky brought from PACU, he is awake, drowsy, able to answer nurse questions, speech clear. Somewhat forgetful of events & grawgy. Dozing intermittently. VS stable. RA oxygen 94% Has only had sip of ice water, in room attempting to get him to eat some of his meal. He reports sore throat but denies pain otherwise. Dr Berkowitz called to give me post-op update, saying she would be up to apply Preparation H to internal rectum, she stated that he has a disolvable sponge packing in rectum. New order for Metamucil to start at 1800. IV Zosyn given in OR, I asked Martita in pharmacy to retime next dose per q6h schedule.
[2020-06-21] MEDS: ATORVASTATIN 20 MG TABLET 40 MG PO (18:12)
[2020-06-21] MEDS: PSYLLIUM HUSK 1 PACKET PO ×2 (18:12→22:47)
[2020-06-21] MEDS: SERTRALINE 50 MG TABLET 100 MG PO (18:12)
[2020-06-21] MEDS: lisinopriL 5 MG TABLET 2.5 MG PO (20:40)
[2020-06-22] VITALS: BP 112/63; PULSE 49; RESP 16; TEMP 36.5; O2SAT 94
[2020-06-22] MEDS: PIPERACILLIN-TAZO 3.375 GM/50 ML FROZ.PIGGY IV ×4 (02:35→20:24)
[2020-06-22 05:23] LABS: Add Manual Diff / Slide Review NO; Basophils Absolute Auto 0 /uL (0-100); Basophils Percent Auto 0.4 % (0-2); Eosinophils Absolute Auto 100 /uL (0-450); Eosinophils Percent Auto 2.1 % (2-4); Hemoglobin 12.7 g/dL (13.5-17.5); Lymphocytes Absolute Auto 1100 /uL (1100-4500); Lymphocytes Percent Auto 27.7 % (25-40); Mean Corpuscular HGB Conc 34.4 % (30-36); Mean Corpuscular Hemoglobin 29.7 PG (26-34); Mean Corpuscular Volume 86.3 fL (80-100); Monocytes Absolute Auto 400 /uL (0-900); Monocytes Percent Auto 9.1 % (3-14); Neutrophils Absolute Auto 2400 /uL (1500-7000); Neutrophils Percent Auto 60.7 % (50-75); Platelet Count 102 X10^3/uL (150-400); Red Blood Cell Count 4.28 X10^6/uL (4.5-5.9); Red Cell Distribution Width 13.8 % (11.6-14.8); White Blood Cell Count 3.9 X10^3/uL (4.5-11.0)
[2020-06-22 05:28] LABS: INR 1.7 (0.9-1.3); Prothrombin Time 19.7 SECONDS (10.1-12.7)
[2020-06-22 05:33] LABS: BUN Creatinine Ratio 11.4 (6-22); Blood Urea Nitrogen 16 mg/dL (9-20); Calcium 9.1 mg/dL (8.4-10.2); Carbon Dioxide 29 mmol/L (22-32); Chloride 102 mmol/L (98-107); Estimated Glomerular Filt Rate 51.7 mL/min (>60); Glucose 119 mg/dL (80-110); HEMOLYSIS < 15 (0-50); Potassium 3.9 mmol/L (3.4-5.1); Sodium 136 mmol/L (137-145)
[2020-06-22 05:47] VITALS: BP 131/67; PULSE 54; RESP 18; TEMP 36.6; O2SAT 94
[2020-06-22] MEDS: LACTATED RINGERS 1,000 ML 75 ML IV (06:43)
[2020-06-22 08:00] VITALS: BP 128/68; PULSE 54; RESP 16; TEMP 36.8; O2SAT 94
--- NOTE | 2020-06-22 09:32 | PM.PN.1 ---
Subjective Subjective Date Patient Seen: 06/22/20 Time Patient Seen: 09:32 Interval history: No acute events overnight. The patient has not had a bowel movement since his procedure yesterday. His pain is well controlled. He is tolerating a diet. No signs of recurrent rectal bleeding at this point. Exam Vital Signs (past 8 hours): - 06/22/20 05:47 Temperature 97.9 F Pulse Rate 54 L Respiratory Rate 18 Blood Pressure 131/67 Pulse Oximetry 94 Oxygen Delivery Method Room Air Oxygen Flow Rate 0 Narrative Exam Narrative: GENERAL: Alert, comfortable. Appears stated age. Answers questions promptly and appropriately. Vital signs noted. HENT: Normocephalic, atraumatic. Hearing intact. CARDIOVASCULAR: Regular rate. No pedal edema. RESPIRATORY: Non-tachypneic, breathing comfortably on room air. GASTROINTESTINAL: Abdomen soft and non-distended Perianal: The external hemorrhoid swelling has gone down dramatically. There is no blood present or stool staining present. GALLITO: Banded hemorrhoids are palpable, no gross blood, preparation H instilled into the rectum during exam GENITALURINARY: No flank tenderness. MUSCULOSKELETAL: Equal tone and mass bilaterally. SKIN: Warm, dry, soft, appropriate color for ethnicity. No other lesions, rashes, or wounds. NEURO: Alert and Oriented X 3. No gross sensory deficits, or cognitive issues. PSYCH: Appropriate affect and mood. Objective Labs Result Diagrams: 06/22/20 05:02 06/22/20 05:02 Labs: Laboratory Results - last 24 hr 06/21/20 06/22/20 06/22/20 08:10 05:02 05:02 WBC 3.9 L RBC 4.28 L Hgb 12.7 L Hct 37.0 L MCV 86.3 MCH 29.7 MCHC 34.4 RDW 13.8 Plt Count 102 L Neut % (Auto) 60.7 Lymph % (Auto) 27.7 [place] % (Auto) 9.1 Eos % (Auto) 2.1 Baso % (Auto) 0.4 Neut # (Auto) 2400 Lymph # (Auto) 1100 [place] # (Auto) 400 Eos # (Auto) 100 Baso # (Auto) 0 PT 19.7 H D INR 1.7 H Sodium Potassium Chloride Carbon Dioxide BUN Creatinine Estimated GFR BUN/Creatinine Ratio Glucose Calcium Blood Type O Negative 06/22/20 05:02 WBC RBC Hgb Hct MCV MCH MCHC RDW Plt Count Neut % (Auto) Lymph % (Auto) [place] % (Auto) Eos % (Auto) Baso % (Auto) Neut # (Auto) Lymph # (Auto) [place] # (Auto) Eos # (Auto) Baso # (Auto) PT INR Sodium 136 L Potassium 3.9 Chloride 102 Carbon Dioxide 29 BUN 16 Creatinine 1.40 H Estimated GFR 51.7 L BUN/Creatinine Ratio 11.4 Glucose 119 H Calcium 9.1 Blood Type Assessment & Plan Assessment and plan (1) Lower gastrointestinal hemorrhage: Status: Acute (2) Internal hemorrhoids with complication: Status: Acute (3) External hemorrhoids with complication: Status: Acute (4) Chronic constipation: Status: Acute (5) Anticoagulated on Coumadin: Status: Acute (6) S/P aortic valve replacement with metallic valve: Status: Acute Assessment & Plan narrative: This is a 59 yo man admitted for copious rectal bleeding and pain, on coumadin, with a complicated cardiac history. Yesterday he had an anorectal exam under anesthesia, hemorrhoidal banding for hemorrhage control, and biopsy of a suspicious lesion in the rectum. He seems to have done well overnight. At this point his pain is likely controlled by local anesthetic which was injected during the procedure. He has not passed any stool since the procedure. He is on Metamucil on a regular diet. Per the hospitalist discussion with Cardiology they asked that he not be off his Coumadin for more than 1 week. Plan: Continue Metamucil Continue preparation H Do not sit on the toilet for more than 2 minutes Expected to have swelling and a sensation of needing to go to the bathroom Ambulate frequently The patient should not be discharged until he is able to have a bowel movement without copious bleeding COVID-19 COVID-19 status: Negative Result date/Date tested (Pos, Neg/Pending): 06/20/20 Time Spent With Patient Time with patient: 15-24 minutes Quality VTE Deep Vein Thrombosis/Pulmonary Embolism Present on Admission: No
[2020-06-22] MEDS: PHENYLEPH/MINERAL OIL/PETROLAT 57 GM OINT 1 APPLIC PR ×3 (10:04→21:46)
[2020-06-22] MEDS: SPIRONOLACTONE 25 MG TABLET PO (10:05)
[2020-06-22] MEDS: carvediloL 12.5 MG TABLET PO ×2 (10:05→21:43)
[2020-06-22] MEDS: FUROSEMIDE 40 MG TABLET PO (10:05)
[2020-06-22] MEDS: polyethylene glycoL 3350 17 GM POWD.PACK PO (10:05)
[2020-06-22] MEDS: PSYLLIUM HUSK 1 PACKET PO ×2 (10:05→21:42)
--- NOTE | 2020-06-22 10:42 | P.PN_ITS ---
Subjective Subjective Date Patient Seen: 06/22/20 Interval history: Miky Segundo is a 59-year-old male with a past medical history significant for CAD status post NM, hypertension, hyperlipidemia, and mechanical aortic valve on warfarin who presented to the ED with persistent rectal bleeding. The patient is resting in bed comfortably. He has no complaints. He denies headache, chest pain, shortness of breath, abdominal pain, nausea, vomiting, fever, chills, dysuria, anal pain, diarrhea or constipation. He recently had a bowel movement without discomfort or bleeding. He is voiding and eliminating without difficulty. He is up ambulating independently. Discussed holding anticoagulation with warfarin therapy due to risk of rebleeding and the on-call jewelry mold maker for [facility] cardiology, Dr. Delgado, recommendation to restart anticoagulation as soon as it is deemed safe to do so by general surgery and preferably within the next week with Lovenox bridge to warfarin. The patient is somewhat nervous to hold warfarin but understands the risk of rebleeding and is agreeable to this plan. Exam Vital Signs (past 8 hours): - 06/22/20 05:47 Temperature 97.9 F Pulse Rate 54 L Respiratory Rate 18 Blood Pressure 131/67 Pulse Oximetry 94 Oxygen Delivery Method Room Air Oxygen Flow Rate 0 Narrative Exam Narrative: General: Middle-aged gentleman sitting in bed and in no acute distress, well- developed, well-nourished, appropriately interactive. HEENT: Normocephalic, atraumatic. External ears without defect. Pupils equal, round, and reactive to light. Anicteric sclerae, moist conjunctivae, and no lid lag. Oropharynx free of erythema and cobble stoning with moist mucosa. Neck: Supple with full range of motion. No jugular venous distension. No bruits. No lymphadenopathy or thyromegaly. Cardiovascular: Regular rate and rhythm with systolic ejection click murmur at left sternal. No rubs or gallops appreciated. Pulmonary: Clear to auscultation bilaterally without crackles, wheezes, or rhonchi. Normal respiratory effort with no use of accessory muscles. Abdomen: Soft, bowel present, nontender, nondistended. No hepatosplenomegaly or masses appreciated. Extremities: No clubbing, cyanosis, or edema. Genitourinary: Anus without erythema or significant edema externally. Skin: Normal temperature, turgor, and texture; no rash, ulcers, or subcutaneous nodules appreciated. Neurological: Cranial nerves grossly intact. Psychiatric: Normal mood and affect. Alert and oriented to person, place, and time. Objective Labs Result Diagrams: 06/22/20 05:02 06/22/20 05:02 Labs: Laboratory Results - last 24 hr 06/21/20 06/22/20 06/22/20 08:10 05:02 05:02 WBC 3.9 L RBC 4.28 L Hgb 12.7 L Hct 37.0 L MCV 86.3 MCH 29.7 MCHC 34.4 RDW 13.8 Plt Count 102 L Neut % (Auto) 60.7 Lymph % (Auto) 27.7 [place] % (Auto) 9.1 Eos % (Auto) 2.1 Baso % (Auto) 0.4 Neut # (Auto) 2400 Lymph # (Auto) 1100 [place] # (Auto) 400 Eos # (Auto) 100 Baso # (Auto) 0 PT 19.7 H D INR 1.7 H Sodium Potassium Chloride Carbon Dioxide BUN Creatinine Estimated GFR BUN/Creatinine Ratio Glucose Calcium Blood Type O Negative 06/22/20 05:02 WBC RBC Hgb Hct MCV MCH MCHC RDW Plt Count Neut % (Auto) Lymph % (Auto) [place] % (Auto) Eos % (Auto) Baso % (Auto) Neut # (Auto) Lymph # (Auto) [place] # (Auto) Eos # (Auto) Baso # (Auto) PT INR Sodium 136 L Potassium 3.9 Chloride 102 Carbon Dioxide 29 BUN 16 Creatinine 1.40 H Estimated GFR 51.7 L BUN/Creatinine Ratio 11.4 Glucose 119 H Calcium 9.1 Blood Type Assessment & Plan Assessment & Plan narrative: Miky Segundo is a 59-year-old male with a past medical history significant for CAD status post NM, hypertension, hyperlipidemia, and bicuspid aortic valve status post mechanical aortic valve on warfarin who presented to the ED with persistent rectal bleeding. 1. Acute rectal bleeding, secondary to hemorrhoids, present on admission. Resolving. -Patient presented with persistent rectal bleeding. Patient is on warfarin for mechanical aortic valve as below. -Continue to hold warfarin for possibility of rebleeding per general surgery. Received tranexamic 1 g IV x 1 and 2 units FFP to reverse warfarin. Continue to monitor INR daily. INR now 1.7. -Dr. Berkowitz performed exam under anesthesia and banded multiple hemorrhoids with rectal biopsies. -Discussed case with on-call jewelry mold maker at [facility], Dr. Delgado, who recommended holding anticoagulation with warfarin therapy for risk of rebleeding and to only hold for the shortest amount of time as possible and restart as soon as it is deemed safe to do so by general surgery and preferably within the next 1 week with therapeutic Lovenox bridge (1 mg/kg twice daily) to warfarin. 2. History of bicuspid aortic valve status post mechanical aortic valve on warfarin, chronic, present on admission. Stable. -Patient had a bioprosthetic aortic valve implanted in 2006 due to a bicuspid aortic valve with valvular insufficiency. 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 According to cardiology notes he has been stable since that time with mild reduced LV function at 45%. -Continue home carvedilol 12.5 mg twice daily, furosemide 40 mg daily, lisinopril 2.5 mg daily and spironolactone 25 mg daily. -Continue to hold warfarin for possibility of rebleeding per general surgery. Received tranexamic 1 g IV x 1 and 2 units FFP to reverse warfarin. Continue to monitor INR daily. INR now 1.7. 3. Hypertension, chronic, present on admission. Stable. -Continue home carvedilol 12.5 mg twice daily, furosemide 40 mg daily, lisinopril 2.5 mg daily and spironolactone 25 mg daily. 4. Chronic heart failure with reduced ejection fraction, present on admission. Stable. -Does not represent CHF exacerbation -As noted above previous ejection fraction has been stable since 2010 with an ejection fraction of 45%. He has been asymptomatic. -Continue home carvedilol 12.5 mg twice daily, furosemide 40 mg daily, lisinopril 2.5 mg daily and spironolactone 25 mg daily. 5. Hyperlipidemia, chronic, present on admission. Stable. -Continue home dose of atorvastatin 40 mg p.o. in the evening Code status: Full code, surrogate decision maker is the patient's spouse VTE prophylaxis: Contraindicated due to rectal bleeding patient is usually on Coumadin and management of this is discussed above Thank you for this most interesting consult. Medicine will sign off at this time but if further assistance is needed please do not hesitate to contact us. Quality VTE Deep Vein Thrombosis/Pulmonary Embolism Present on Admission: No
[2020-06-22] MEDS: [UNRECOGNIZED DRUG - OTHER] 1 EACH PR ×3 (11:35→20:24)
[2020-06-22] MEDS: ACETAMINOPHEN 325 MG TABLET 650 MG PO ×2 (13:38→19:40)
--- NOTE | 2020-06-22 15:01 | PC.NURSE ---
Patient is feeling better today. He had a small bowel movement that was soft and brown in color with no blood. Applying prep H cream to his outer and inner hemrroids. He also received a prep H suppository that did cause him a small amount of discomfort. Put suppository up bottom about a half inch and felt bands that banded for patients internal hemrroids and did not advance any farther. Patient does have some purple bruising to outter rectum. He is getting iv antibiotics and up independently.
[2020-06-22 15:40] VITALS: BP 115/64; PULSE 96; RESP 16; TEMP 36.5; O2SAT 96
[2020-06-22] MEDS: ATORVASTATIN 20 MG TABLET 40 MG PO (17:41)
[2020-06-22] MEDS: SERTRALINE 50 MG TABLET 100 MG PO (17:41)
[2020-06-22 19:35] VITALS: BP 105/58; PULSE 65; RESP 18; TEMP 37; O2SAT 93
[2020-06-22] MEDS: lisinopriL 5 MG TABLET 2.5 MG PO (21:42)
[2020-06-22 23:35] VITALS: BP 120/61; PULSE 51; RESP 16; TEMP 36.4; O2SAT 95
[2020-06-23] MEDS: PIPERACILLIN-TAZO 3.375 GM/50 ML FROZ.PIGGY IV (02:31)
[2020-06-23] MEDS: SODIUM CHLORIDE 0.9% FLUSH 10 ML IV ×2 (02:32→08:04)
[2020-06-23 05:44] LABS: INR 1.5 (0.9-1.3); Prothrombin Time 16.9 SECONDS (10.1-12.7)
[2020-06-23 05:47] LABS: Add Manual Diff / Slide Review NO; Basophils Absolute Auto 0 /uL (0-100); Basophils Percent Auto 0.4 % (0-2); Eosinophils Absolute Auto 100 /uL (0-450); Eosinophils Percent Auto 2.3 % (2-4); Hemoglobin 12.3 g/dL (13.5-17.5); Lymphocytes Absolute Auto 1100 /uL (1100-4500); Lymphocytes Percent Auto 28.1 % (25-40); Mean Corpuscular HGB Conc 34.2 % (30-36); Mean Corpuscular Hemoglobin 29.6 PG (26-34); Mean Corpuscular Volume 86.3 fL (80-100); Monocytes Absolute Auto 400 /uL (0-900); Monocytes Percent Auto 9.7 % (3-14); Neutrophils Absolute Auto 2300 /uL (1500-7000); Neutrophils Percent Auto 59.5 % (50-75); Platelet Count 106 X10^3/uL (150-400); Red Blood Cell Count 4.17 X10^6/uL (4.5-5.9); Red Cell Distribution Width 13.7 % (11.6-14.8); White Blood Cell Count 3.9 X10^3/uL (4.5-11.0)
[2020-06-23 05:50] LABS: BUN Creatinine Ratio 12.7 (6-22); Blood Urea Nitrogen 17 mg/dL (9-20); Carbon Dioxide 27 mmol/L (22-32); Chloride 103 mmol/L (98-107); Estimated Glomerular Filt Rate 54.4 mL/min (>60); Glucose 122 mg/dL (80-110); HEMOLYSIS < 15 (0-50); Potassium 3.6 mmol/L (3.4-5.1); Sodium 137 mmol/L (137-145)
--- NOTE | 2020-06-23 07:30 | PM.DS.1 ---
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 He has been on coumadin for the past 8 years due to the metal valve. He has had rectal bleeding ever since starting coumadin. He had never had a colonoscopy due to the complicated cardiac situation. He has intermittent rectal bleeding. Whenever he eats something he shouldn't and gets constipation he gets rectal bleeding. He often has significant swelling which he has now. He deferred dealing with his rectal bleeding because of the coumadin and cardiac history. He came into the ER tonight because of copious uncontrolled bleeding and uncontrolled pain. Dr. Neal in the ER has used surgicel, an ice pack, and transexcemic acid to try and stop his bleeding. His daughter is supposed to get proposed to by her boyfriend on Friday and the patient was planning to fly to [place] for that on Friday. ROS: Thirteen system review is otherwise negative other than as mentioned below and in HPI. Constitutional: Denies fevers, chills, weakness ENT: Denies sore throat, neck pain, ear pain CV: Denies chest pain, palpitations, dyspnea on exertion Respiratory: Denies cough, wheeze, dyspnea GI: Denies nausea, vomiting, diarrhea; reports change in bowel habits, black or bloody stools : Denies dysuria, hematuria, flank pain MS: Denies muscle weakness, numbness, joint swelling or warmth Skin: Denies rashes, nonhealing lesions PE: GENERAL: Well groomed and cooperative. Appears stated age. Answers questions promptly and appropriately. Vital signs noted. HENT: Normocephalic, atraumatic. Hearing intact. EYES: Conjunctiva pink, sclera white, no periorbital swelling. CARDIOVASCULAR: Regular rate. No pedal edema. RESPIRATORY: Non-tachypneic, breathing comfortably on room air. GASTROINTESTINAL: Abdomen soft and non-distended perianal: blood present, large external hemorrhoid swellings, tender to palpation GALLITO: massively swollen internal and external hemorrhoids, with internal hemorrhoid prolapse, with dark strangulated appearing prolapsed rectal mucosa GENITALURINARY: No flank tenderness. MUSCULOSKELETAL: Equal tone and mass bilaterally. SKIN: Warm, dry, soft, appropriate color for ethnicity. No other lesions, rashes, or wounds. NEURO: Alert and Oriented X 3. No gross sensory deficits, or cognitive issues. PSYCH: Appropriate affect and mood. Discharge Providers Provider Date of admission: 06/20/20 21:52 Discharge Date: 06/23/20 Primary care physician: Sascha Garcia MD Consults: 06/20/20 21:57 Consult to Physician Routine Comment: Consulting Provider: Mónica Berkowitz Reason for consultation: Rectal bleeding Has provider been notified: Yes Discharge provider: Mónica Berkowitz MD Summary Hospital Course Discharge Diagnosis: Uncontrolled bleeding of hemorrhoids exacerbated by anticoagulation and chronic constipation Hospital Course: The patient was admitted from the ER for ucontrolled rectal bleeding. His Coumadin was reversed with FFP and he was taken to the OR for anorectal exam under anesthesia and procedures for hemostasis of his hemorrhoids. He had banding of two actively bleeding hemorrhoidal columns and he had a biopsy of a suspicious site. Post operatively he was kept for observation. His hbg remained stable and his bleeding did not reoccur. He was treated with antibiotics for 24 hours post procedure due to his mechanical heart valve. He was able to pass a non bloody bowel movement and his swelling and pain were treated. Status at Discharge Cognitive/behavioral status at discharge: at baseline, oriented Functional status at discharge: independent ambulation Overall status at discharge: patient is progressing back to baseline Time Spent with Patient Time spent: Greater than 30 minutes Exam Vital Signs (past 8 hours): - 06/22/20 23:35 Temperature 97.6 F Pulse Rate 51 L Respiratory Rate 16 Blood Pressure 120/61 Pulse Oximetry 95 Oxygen Delivery Method Room Air Oxygen Flow Rate 0 Narrative Exam Narrative: GENERAL: Alert, comfortable. Appears stated age. Answers questions promptly and appropriately. Vital signs noted. HENT: Normocephalic, atraumatic. Hearing intact. CARDIOVASCULAR: Regular rate. No pedal edema. RESPIRATORY: Non-tachypneic, breathing comfortably on room air. GASTROINTESTINAL: Abdomen soft and non-distended Perianal: Moderate external hemorrhoids; mildly TTP. Mild bloody mucous discharge; hemorrhoid suppository placed during exam. GALLITO: Banded hemorrhoids are palpable, no gross blood, preparation H instilled into the rectum during exam GENITALURINARY: No flank tenderness. MUSCULOSKELETAL: Equal tone and mass bilaterally. SKIN: Warm, dry, soft, appropriate color for ethnicity. No other lesions, rashes, or wounds. NEURO: Alert and Oriented X 3. No gross sensory deficits, or cognitive issues. PSYCH: Appropriate affect and mood. Objective Labs Result Diagrams: 06/23/20 05:10 06/23/20 05:10 Labs: Laboratory Results - last 24 hr 06/23/20 06/23/20 06/23/20 05:10 05:10 05:10 WBC 3.9 L RBC 4.17 L Hgb 12.3 L Hct 36.0 L MCV 86.3 MCH 29.6 MCHC 34.2 RDW 13.7 Plt Count 106 L Neut % (Auto) 59.5 Lymph % (Auto) 28.1 [place] % (Auto) 9.7 Eos % (Auto) 2.3 Baso % (Auto) 0.4 Neut # (Auto) 2300 Lymph # (Auto) 1100 [place] # (Auto) 400 Eos # (Auto) 100 Baso # (Auto) 0 PT 16.9 H INR 1.5 H Sodium 137 Potassium 3.6 Chloride 103 Carbon Dioxide 27 BUN 17 Creatinine 1.34 H Estimated GFR 54.4 L BUN/Creatinine Ratio 12.7 Glucose 122 H Calcium 9.0 Discharge Assessment & Plan Assessment and Plan Assessment: Uncontrolled hemorrhoidal bleeding due to chronic constipation and exacerbated by anticoagulation on Coumadin Plan of Treatment: Holding anticoagulation, using topical preparation H, bowel regimen with Metamucil BID, and Miralax PRN, follow up on Friday in clinic with Dr. Berkowitz Discharge Plan Discharge Plan Patient Disposition: Home Discharge comment: Things to remember at home: BOWEL REGIMEN: Take Metamucil 1-2 times per day, with the goal of having a soft formed stool without having to strain and without having to sit on the toilet for more than 2 minutes. If you have any constipation, you may also use Miralax 1-3 times per day to regulate your stools. You will need to make adjustments in your bowel regimen as your body responds. You may increase or decrease the Metamucil and Miralax, but do not stop the Metamucil altogether. You should take it on a regular basis to prevent constipation, hard stools, and to make sure your stools are bulky enough. TOILET HABITS: Do not sit on the toilet for more than two minutes to have a bowel movement or for any other reason (reading magazines, etc). Do not wipe with toilet paper. Use baby wipes or wash in shower or bath tub after BM's. PAIN RELIEF AND TREATMENT OF SWELLING: Use preparation H suppositories as well as topical ointment 2-4 times per day for the next 1-2 weeks to help reduce swelling, bleeding and pain. You may also take ibuprofen or tylenol for discomfort. Try to avoid narcotic pain medications as they will cause constipation. Sitting in a warm tub will help with pain and help to keep the area clean. Do this 1-2 times per day and after bowel movements. You may also sit on an ice pack to help reduce and control the swelling. Drink plenty of water to keep yourself hydrated. BLOOD THINNERS: Per the Hospitalists and your market editor you may hold your Coumadin until your follow-up appointment. We will order lovenox to begin once you are cleared at your follow up. Your primary doctor will need to check your INR once you are back on our Coumadin. CONCERNS/EMERGENCIES: Please call [facility] and speak to the doctor continuous improvement analyst, or come into the ER if you suddenly have a significant amount of bleeding from your rectum. You can have a short episode of bleeding when the banded hemorrhoids fall off, but any persistent bleeding that will not stop should result in contact with the doctor or ER. A small amount of blood on the stool or toilet paper, is to be expected for the next 1-2 weeks. Discharge orders & Medications Prescriptions: New hydrocodone-acetaminophen 5-325 mg tablet 1 tab PO Q4-6H PRN (Reason: post operative pain) Qty: 20 RF: 0 enoxaparin [Lovenox] 100 mg/mL syringe 90 mg SUBCUT Q12H Qty: 10 RF: 2 Continued spironolactone 25 MG tablet 25 mg PO QDAY Qty: 0 RF: 0 carvedilol [Coreg] 12.5 MG tablet 12.5 mg PO BID Qty: 0 RF: 0 furosemide 40 mg tablet 40 mg PO QAM RF: 0 atorvastatin 40 mg tablet 40 mg PO QPM RF: 0 sertraline 100 mg tablet 100 mg PO QPM RF: 0 lisinopril 2.5 mg tablet 2.5 mg PO QPM RF: 0 Discontinued warfarin [Coumadin] 5 mg Tablet 10 mg PO DAILY RF: 0 Follow up/Referrals: Sascha Garcia MD [Primary Care Provider] - Mónica Berkowitz MD [Physician] - (Please call on Friday to be seen in clinic on Friday with Dr. Berkowitz) Diet/Activity/Treatments Diet: Diet as Tolerated Diet comment: Heart healthy, high fiber, avoid things that cause constipation/diarrhea Activity: Avoid heavy lifting, straining, and straining on the toilet Skin/Wound/Dressing Care Report to your healthcare provider any signs of infection, such as:: chills, fever, night sweats, increased pain, unusual drainage and unusual redness Visit Report/Discharge Packet Instructions: Hemorrhoid Banding, Heart-Healthy Diet, High-Fiber Diet, DI for Hemorrhoid Banding, Enoxaparin Injection, Hydrocodone Stand Alone Forms: Surgery Discharge Visit Report Forms: Patient Portal/API, Stroke Signs & Symptoms Discharge Data Primary Care Provider: Sascha Garcia Discharges patient from system. Discharge Date/Time: 06/23/20 12:15 Quality VTE Deep Vein Thrombosis/Pulmonary Embolism Present on Admission: No
[2020-06-23 07:49] VITALS: BP 115/64; PULSE 49; RESP 16; TEMP 36; O2SAT 94
[2020-06-23] MEDS: PSYLLIUM HUSK 1 PACKET PO (08:02)
[2020-06-23] MEDS: carvediloL 12.5 MG TABLET PO (08:02)
[2020-06-23] MEDS: PHENYLEPH/MINERAL OIL/PETROLAT 57 GM OINT 1 APPLIC PR (08:03)
[2020-06-23] MEDS: SPIRONOLACTONE 25 MG TABLET PO (08:03)
[2020-06-23] MEDS: ACETAMINOPHEN 325 MG TABLET 650 MG PO (08:03)
[2020-06-23] MEDS: FUROSEMIDE 40 MG TABLET PO (08:03)
[2020-06-23] MEDS: [UNRECOGNIZED DRUG - OTHER] 1 EACH PR (09:45)
--- NOTE | 2020-06-23 11:51 | PC.NURSE ---
Assess- Patient had an xxl soft bowel movement this am. He took a shower and prep H suppository given to patient and also external cream applied to out hemorrhoids. Patient did not have any bleeding this am. Banded hemorroids in place. into see patients and all paperwork gone over with by her and this RN.
--- NOTE | 2020-06-23 15:33 | CM.DPNOTE ---
DC Note Reviewed chart. Patient seen walking the hallway w/spouse. DC order placed by Dr Berkowitz today and patient/spouse state no needs from this [facility]. P: DC home w/family and close outpt f/u. JW
== END 2020-06-23 12:15 | disposition home or self-care (01) | DRG 348 ==
LOC: ED 21:52 → AC 21:53
PROVIDERS: Internal Medicine; Surgery; Admitting Provider Nurse Practitioner Family; Emergency Provider Emergency Medicine; PCP Family Medicine; Referring Provider Emergency Medicine; Visit Provider Nurse Practitioner Family
PROC: 06LY3CC Occlusion of Hemorrhoidal Plexus with Extraluminal Device, Percutaneous Approach (ICD-10-PCS; CPT 45990; principal; 2020-06-21 12:00)
DX: K62.5 Hemorrhage of anus and rectum (principal); D68.318 Other hemorrhagic disorder due to intrinsic circulating anticoagulants, antibodies, or inhibitors; I50.22 Chronic systolic (congestive) heart failure; I11.0 Hypertensive heart disease with heart failure; K64.8 Other hemorrhoids; K64.3 Fourth degree hemorrhoids; K59.09 Other constipation; Z95.2 Presence of prosthetic heart valve; E78.5 Hyperlipidemia, unspecified; Z11.59 Encounter for screening for other viral diseases
CPT/HCPCS: 36415; 36430; 80048; 80053; 83735; 85025; 85610; 85730; 86850; 86900; 86901; 86927; 87635; 99284; P9016; C9290; J2060; J2543; J2704; J3010

== ENCOUNTER → 2023-05-01 16:07 | Outpatient (CLI) | payer OTHER, SELFPAY ==
[2020-06-26 08:38] VITALS: BMI 30.3
--- NOTE | 2023-05-01 16:08 | DI.ECHO.S_ITS ---
[place] +---------+ [facility] +---------+ : : [address] : [address] : : : : [id number] : : : : Phone: [phone] +---------+ Echocardiogram Report + + :Name: ADELAIDE WINSTON Study Date: 05/01/2023 Height: 73 in : :[facility] ReadingLocation: Weight: 228 lb : : Gender: Male BSA: 2.3 m2 : :: 1960 Age: 62 yrs BP: 174/95 mmHg: :Reason For Study: Ventricular Fibrillation : :Ordering Physician: Leidy, : :Alberto Performed By: Emperatriz Dickey : :Referring: ALBERTO NICHOLS : + + Interpretation Summary 1) Severely enlarged left ventricle with mildly to moderately reduced systolic function (EF 40-45%). 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 This could be due to RV pacing. 3) The right ventricle is mildly dilated. The right ventricular systolic function is normal. There is a pacemaker lead in the right ventricle. 4) A 27mm Malachi [employer] Cardio mechanical valve is well seated in the aortic valve position and opens well (mean gradient 14mmHg). There is trace aortic regurgitation. 5) No prior Echo available for comparison. Procedure: A two-dimensional transthoracic echocardiogram with color flow and Doppler was performed. The study quality was technically difficult. There is no prior echocardiogram noted for this patient. A contrast injection of Definity was performed to improve assessment of LV function. The patient was in normal sinus rhythm during the exam. Left Ventricle: The left ventricle is severely dilated. The ejection fraction is estimated to be 40-45%. 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 Diastolic parameters suggest a relaxation abnormality of the left ventricle, consistent with probable normal filling pressures. Right Ventricle: The right ventricle is mildly dilated. There is a pacemaker lead in the right ventricle. The right ventricular systolic function is normal. Atria: The left atrium is mildly dilated. Right atrial size is normal. There is no Doppler evidence for an interatrial shunt. Mitral Valve: The mitral valve is normal. There is no mitral valve stenosis. There is trace mitral regurgitation. Aortic Valve: A 27mm [employer] Cardio mechanical valve is present. The peak aortic velocity is 249 m/sec. The aortic valve mean gradient is 14 mmHg. There is trace aortic regurgitation. Tricuspid Valve: The tricuspid valve is normal. There is no tricuspid stenosis. There is trace tricuspid regurgitation. The right ventricular systolic pressure is estimated to be at least 14 mmHg based on an estimated right atrial pressure of 3 mm Hg. Pulmonic Valve: The pulmonic valve leaflets are thin and pliable; valve motion is normal. There is no pulmonic valvular stenosis. There is trace pulmonic regurgitation. Great Vessels: The ascending aorta is normal in size. The pulmonary artery is normal size. The IVC is of normal diameter and collapses greater than 50% with a sniff. This suggests a low right atrial pressure of 3 mm Hg. Pericardium/ Pleura There is no pericardial effusion. There is no pleural effusion. MMode/2D Measurements & Calculations LVIDd: 6.5 cm LVOT diam: 2.2 cm LVIDs: 5.2 cm asc Aorta Diam: 3.0 cm FS: 20.0 % EPSS: 1.9 cm IVSd: 1.4 cm LVPWd: 1.5 cm LV faith. diameter/BSA (cm/m^2): 2.9 LV sys. diameter/BSA (cm/m^2): 2.3 LA A2 area: 21.6 cm2 RA long axis: 5.4 cm LA A4 area: 20.6 cm2 RA area: 16.1 cm2 LA length (vol): 5.3 cm RA vol: 40.7 ml LA vol: 71.1 ml RA : 17.9 ml/m2 LA vol index: 31.3 ml/m2 RVD1 (basal): 4.1 cm LVLs ap4: 9.9 cm LVLd ap2: 9.7 cm LVLs ap2: 8.4 cm Doppler Measurements & Calculations Ao V2 max: 258.5 cm/sec LVOT Max Lázaro: 72.3 cm/sec Ao V2 mean: 179.5 cm/sec LV V1 max P.1 mmHg Ao max P.0 mmHg LV V1 VTI: 19.6 cm Ao mean P.5 mmHg GIBRAN(I,D): 1.2 cm2 Ao V2 VTI: 60.0 cm GIBRAN(V,D): 1.1 cm2 sev ratio: 0.33 GIBRAN indexed to BSA (cm^2/m^2): 0.54 MV E max lázaro: 80.1 cm/sec TR max lázaro: 165.0 cm/sec MV A max lázaro: 65.6 cm/sec TR max P.9 mmHg MV E/A: 1.2 PA pr(Accel): 25.4 mmHg Med Peak E' Lázaro: 5.7 cm/sec E/E' med: 14.0 Lat Peak E' Lázaro: 7.3 cm/sec E/E' lat: 11.0 E/e' average: 12.5 MV dec time: 0.22 sec SV(LVOT): 74.3 ml AV VR_phl: 0.28 GIBRAN(VTI)/BSA_phl: 0.54 Reading Physician:06:02 PM
== END ==
PROVIDERS: PCP Family Medicine; Referring Provider Internal Medicine; Visit Provider Internal Medicine
DX: I49.01 Ventricular fibrillation (principal); I42.8 Other cardiomyopathies; Z95.2 Presence of prosthetic heart valve; Z95.0 Presence of cardiac pacemaker
CPT/HCPCS: 93306; Q9957

== ENCOUNTER → 2023-10-20 07:03 | Outpatient (CLI) | payer OTHER, SELFPAY ==
[2020-06-26 08:38] VITALS: BMI 30.3
--- NOTE | 2023-10-20 | DI.ECHO.S_ITS ---
[place] +---------+ Hospital +---------+ : : [address] : [address] : : : : [id number] : : : : Phone: [phone] +---------+ Echocardiogram Report + + :Name: ADELAIDE WINSTON Study Date: 10/20/2023 Height: 73 in : :[facility] ReadingLocation: Weight: 226 lb : : Gender: Male BSA: 2.3 m2 : :: 1960 Age: 63 yrs BP: 133/78 mmHg: :Reason For Study: CARDIOMYOPATHY : :Ordering Physician: Malena TEMPLEformed By: Nette Morgan : :Referring: ANITA TEMPLE : + + Interpretation Summary 1) Severely enlarged left ventricle with mildly to moderately reduced systolic function (EF 40-45%). 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 This could be due to RV pacing. 3) The right ventricle is mildly dilated. Right ventricular systolic function is mildly reduced. There is a pacemaker lead in the right ventricle. 4) A 27mm Malachi [employer] Cardio mechanical valve is well seated in the aortic valve position and opens well (mean gradient 9mmHg). There is mild aortic regurgitation. 5) Compared to the Echo done 05/01/2023, no significant change. Procedure: A two-dimensional transthoracic echocardiogram with color flow and Doppler was performed. The study quality was technically adequate. Comparison is made with the echocardiogram of 05/01/2023. The patient was in sinus bradycardia with heart rates between 53-57 bpm during the exam. Left Ventricle: The left ventricle is severely dilated. Left ventricular wall thickness is mildly increased. The ejection fraction is estimated to be 40-45%. 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 This could be due to RV pacing. Right Ventricle: The right ventricle is not well visualized. The right ventricle is mildly dilated. Right ventricular systolic function is mildly reduced. Atria: The left atrium is mildly dilated. Right atrial size is normal. There is no Doppler evidence for an interatrial shunt. Mitral Valve: The mitral valve leaflets appear mildly thickened, but open well. There is mild mitral regurgitation. Aortic Valve: A 27mm [employer] Cardio mechanical valve is present. The peak aortic velocity is 2.3 m/sec. The aortic valve mean gradient is 9 mmHg. There is mild aortic regurgitation. Tricuspid Valve: The tricuspid valve is normal. There is mild tricuspid regurgitation. The right ventricular systolic pressure is estimated to be at least 22 mmHg based on an estimated right atrial pressure of 3 mm Hg. Pulmonic Valve: The pulmonic valve is not well seen, but is grossly normal. There is no pulmonic valvular regurgitation. Great Vessels: The ascending aorta could not be visualized. The IVC is of normal diameter and collapses greater than 50% with a sniff. This suggests a low right atrial pressure of 3 mm Hg. Pericardium/ Pleura There is no pericardial effusion. There is no pleural effusion. MMode/2D Measurements & Calculations LVIDd: 7.0 cm LVOT diam: 2.2 cm LVIDs: 5.3 cm FS: 23.3 % EPSS: 1.8 cm IVSd: 0.90 cm LVPWd: 1.2 cm LV faith. diameter/BSA (cm/m^2): 3.1 LV sys. diameter/BSA (cm/m^2): 2.4 LA A2 area: 23.0 cm2 RA long axis: 4.3 cm LA A4 area: 18.3 cm2 RA area: 13.5 cm2 LA length (vol): 4.6 cm RA vol: 36.1 ml LA vol: 77.2 ml RA : 15.9 ml/m2 LA vol index: 34.0 ml/m2 IVC diam: 1.4 cm RVD1 (basal): 4.2 cm TAPSE: 1.4 cm Doppler Measurements & Calculations Ao V2 max: 222.7 cm/sec LVOT Max Lázaro: 80.9 cm/sec Ao V2 mean: 148.1 cm/sec LV V1 max P.6 mmHg Ao max P.8 mmHg LV V1 VTI: 18.6 cm Ao mean P.9 mmHg GIBRAN(I,D): 1.5 cm2 Ao V2 VTI: 47.4 cm GIBRAN(V,D): 1.4 cm2 sev ratio: 0.39 GIBRAN indexed to BSA (cm^2/m^2): 0.68 MV E max lázaro: 83.8 cm/sec TR max lázaro: 216.8 cm/sec MV A max lázaro: 79.6 cm/sec TR max P.8 mmHg MV E/A: 1.1 PA V2 max: 111.1 cm/sec Med Peak E' Lázaro: 4.5 cm/sec PA V2 mean: 77.7 cm/sec E/E' med: 18.7 PA mean P.7 mmHg Lat Peak E' Lázaro: 7.4 cm/sec PA pr(Accel): 37.9 mmHg E/E' lat: 11.3 E/e' average: 15.0 MV dec time: 0.24 sec SV(CAMI): 73.2 ml Reading Physician:05:19 PM
== END ==
PROVIDERS: PCP Family Medicine; Referring Provider Internal Medicine Cardiovascular Disease; Visit Provider Internal Medicine Cardiovascular Disease
DX: I42.9 Cardiomyopathy, unspecified (principal); I51.7 Cardiomegaly; Z95.0 Presence of cardiac pacemaker; I35.1 Nonrheumatic aortic (valve) insufficiency
CPT/HCPCS: 93306